=== PATIENT | female | born 2000 | race Caucasian/White ===

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

== ENCOUNTER 2022-11-14 08:23 | Emergency (ER) | payer OTHER ==
[2022-11-14 08:37] VITALS: BP 148/85; O2SAT 100
--- NOTE | 2022-11-14 08:40 | ED Physician Documentation ---
PD HPI HEADACHE - Stated complaint Stated Complaint: WOODS,DIZZINESS,NAUSEA - Chief complaint Chief Complaint: Neuro - History obtained from History obtained from: Patient - History of Present Illness Timing - onset: How many days ago (4) Timing - onset during: Light activity Timing - duration: Days (onset headache general 4 days ago with light activity. Improved with rest through the day. Was minimally present the past 2 days and then worsened again today.) Timing - details: Intermittant Pain level max: 10 Pain level now: 6 Location: Front, Global Quality: Throbbing, Aching Associated symptoms: Nausea. No: Fever, Stiff neck, Vomiting, Weakness, Numbness Improved by: Rest. No: Meds (tried ibuprofen) Worsened by: Noise Contributing factors: No: Hypertension, Recent illness, Trauma Similar symptoms before: Diagnosis (has history of intermittent headaches Dx as migraines for which she usually takes Ibuprfoen and rest in dark. The current headache was more abrupt than others and lasted longer. No focal weakness, vision loss, trouble speaking, trauma, fever.) Recently seen: Not recently seen Review of Systems Constitutional: denies: Fever, Chills Nose: denies: Rhinorrhea / runny nose, Congestion Throat: denies: Sore throat Respiratory: denies: Cough GI: reports: Nausea. denies: Vomiting, Diarrhea Skin: denies: Rash, Lesions Musculoskeletal: denies: Neck pain, Back pain Neurologic: denies: Focal weakness, Numbness, Difficulty speaking, Altered me ntal status PD PAST MEDICAL HISTORY - Past Medical History Cardiovascular: None Respiratory: None Neuro: Headaches Endocrine/Autoimmune: None - Past Surgical History Past Surgical History: No - Present Medications Home Medications: Ambulatory Orders Medication Instructions Recorded Confirmed HYDROcod/ACETAM 5/325 [Spurger 5/325] 1 ea PO Q6H PRN #10 tablet 11/14/22 Ondansetron Odt [Zofran] 4 mg TL Q6H PRN #10 tablet 11/14/22 dexAMETHasone [Decadron] 4 mg PO DAILY #5 tablet 11/14/22 - Allergies Allergies/Adverse Reactions: Allergies Allergy/AdvReac Type Severity Reaction Status Date / Time No Known Drug Allergies Allergy Verified 11/14/22 08:31 - Social History Does the pt smoke?: No Smoking Status: Never smoker Does the pt drink ETOH?: No Does the pt have substance abuse?: No - Immunizations Immunizations are current?: Yes - POLST Patient has POLST: No PD ED PE NORMAL - Vitals Vital signs reviewed: Yes - General General: Alert and oriented X 3, No acute distress, Well developed/nourished - HEENT HEENT: PERRL, EOMI, Ears normal, Pharynx benign - Neck Neck: Supple, no meningeal sign, No adenopathy - Cardiac Cardiac: RRR, No murmur - Respiratory Respiratory: Clear bilaterally - Derm Derm: Normal color, Warm and dry - Neuro Neuro: Alert and oriented X 3, No motor deficit, No sensory deficit, Normal speech Eye Opening: Spontaneous Motor: Obeys Commands Verbal: Oriented GCS Score: 15 Results - Vitals Vitals: Vital Signs - 24 hr 11/14/22 08:29 Temperature 36.8 C Heart Rate 98 Respiratory 20 Rate Blood Pressure 148/85 H O2 Saturation 100 Oxygen O2 Source Room air - Rads (name of study) head CT Relevant Findings:: Prelim report reviewed, EMP independent interpretation of test (no acute intracranial pathology.) PD Medical Decision Making - ED course Complexity details: reviewed results (CT scan is good. She had onset 4 days ago but then better and then worse again today. So I would work on assumtpion of within 6 hours of abrupt worse, that CT should be good for SAH and certainly would show other ICH, mass effect, edema, etc. ), considered differential (kconsider migraine with just more abrupt onset. Has some noise sensitive component. No red flags otherwise except for quicker onset. However she states is not like usual headache. Shared decision for CT scan and opted for scanning. ), d/w patient Reviewed Lab Results: with normal CT, presume atypical migraine for her. Discussed with her the consideration of LP but did not feel it needed as not c/w infectious and CT should be adequate for ICH. Departure - Departure Disposition: 01 Home, Self Care Clinical Impression: Headache Condition: Stable Record reviewed to determine appropriate education?: Yes Instructions: ED Cephalgia Unspecified Follow-Up: Ana Avelar ND [Primary Care Provider] - Prescriptions: dexAMETHasone [Decadron] 4 mg PO DAILY #5 tablet HYDROcod/ACETAM 5/325 [Spurger 5/325] 1 ea PO Q6H PRN #10 tablet PRN Reason: Pain Ondansetron Odt [Zofran] 4 mg TL Q6H PRN #10 tablet PRN Reason: Nausea / Vomiting Comments: Your headache could certainly be a persistent (status) migraine and these can last for several days to a week or more. Your CT scan is normal which does eliminate some potential conditions. You do not appear ill with regard to conditions like meningitis. At this point it is reasonable to see how you do with some anti-inflammatories., Medication for persistent migraine would be a steroid. I prescribed Decadron daily for 5 more days. 2 this had Tylenol every 4-6 hours if needed or ibuprofen if needed. Ondansetron/Zofran if needed for nausea. I prescribed a small amount of hydrocodone/acetaminophen if needed for worse headache at times for the current headache or future migraines. Recheck if not improved well over the next couple of days and return if worsening symptoms overall. I sent your prescriptions to your preferred pharmacy, [facility]. I am prescribing a short course of narcotic pain medication for you. These are potentially dangerous and addictive medications that should be used carefully. These medications may constipate you. Take an [id number] stool softener such as docusate twice daily with plenty of water while taking these medications. If you go 24 hours without a bowel movement, take [id number] MiraLAX, per package instructions. Do not drink or drive while taking these medications. If you received narcotic or sedating medications while in the emergency department do not drive for 24 hours. Store this medication in a safe, secure place and out of reach of children. It is a violation of federal law to give or sell this medication to another person or to use in a manner other than prescribed. The ED will not refill narcotic prescriptions, including prescriptions lost or stolen. You can dispose of unwanted medications at the [facility]'s office or at several pharmacies such as [facility]. Forms: PCP List, Activity restrictions Discharge Date/Time: 11/14/22 11:00
[2022-11-14] MEDS ORDERED: dexAMETHasone 4 MG TABLET PO STA (09:10)
[2022-11-14] MEDS ORDERED: NAPROXEN 250 MG TABLET PO STA (09:10)
[2022-11-14] MEDS ORDERED: ONDANSETRON ODT 4 MG TABLET TL STA (09:20)
--- NOTE | 2022-11-14 10:09 | CT Report ---
PROCEDURE: HEAD WO INDICATIONS: headache for 4 days TECHNIQUE: Noncontrast 4.5 mm thick angled axial sections acquired from the foramen magnum to the vertex. For r adiation dose reduction, the following was used: automated exposure control, adjustment of mA and/or kV according to patient size. COMPARISON: None. FINDINGS: Image quality: Excellent. CSF spaces: Basal cisterns are patent. No extra-axial fluid collections. Ventricles are normal in size and shape. Brain: No midline shift. No intracranial masses or hemorrhage. Nguyen-white matter interface is norm al. Skull and face: Calvarium and visualized facial bones are intact, without suspicious lesions. Sinuses: Visualized sinuses and mastoids are clear. IMPRESSION: No acute intracranial pathology Reviewed by: Dante Lezama MD on 11/14/2022 10:08 AM PDT Approved by: Dante Lezama MD on 11/14/2022 10:08 AM PDT Station ID: [id number]
== END 2022-11-14 11:00 | disposition home or self-care (01) ==
LOC: ED 08:23
DX: R51.9 Headache, unspecified (principal)
CPT/HCPCS: 70450; 99283; 99284; A9270; J8540; Q0162

== ENCOUNTER 2023-04-17 17:15 | Outpatient (CLI) | payer OTHER | END 2023-04-17 17:30 | disposition home or self-care (01) | LOC: LAB.N 17:15 | PROVIDERS: ATTEND Physician Assistant Medical | DX: N30.01 Acute cystitis with hematuria (principal) | CPT/HCPCS: 87086; 87181 ==

== ENCOUNTER 2023-11-02 10:17 | Outpatient (CLI) | payer OTHER ==
[~2023-11-02 10:17] MED LIST: GADOTERATE MEGLUMINE 10 MMOL/20 ML VIAL ONE
[2023-11-02] MEDS: GADOTERATE MEGLUMINE 10 MMOL/20 ML VIAL IVP ONE (11:42)
--- NOTE | 2023-11-04 13:24 | MRI Report ---
PROCEDURE: Pelvis W/WO INDICATIONS: ENDOMETROSIS CONTRAST: CLARISCAN 16.4 ML 16.4 mL TECHNIQUE: Coronal ultra fast SE, sagittal breath-hold T2 FSE; axial T1 FSE with and without fat saturation thro ugh the pelvis. Optional long- and short-axis uterine nonbreath-hold T2 FSE through the uterus. Sag ittal or axial dynamic ultra fast GE during administration of contrast. Post-contrast axial or coron al ultra fast GE / 2-D spoiled GE with fat saturation from the iliac crests to the symphysis. Option al diffusion weighted imaging and ADC may be performed. COMPARISON: Ultrasound 10/12/2023 FINDINGS: Image quality: Excellent. Uterus: Uterus is normal in size. Endometrium is normal in thickness. Junctional zone is normal in thickness at 12 mm or less. Nuvo ring present within the vagina. Adnexa: Both ovaries are normal in size, without suspicious cystic or solid lesions. Greater than 12 peripheral follicles in each ovary. No T1 bright foci within the deep pelvis or adnexa. Urinary system: Bladder wall is normal in thickness. Distal ureters are non distended. Urethra ce ears normal in morphology. Nodes and vessels: No pelvic or inguinal adenopathy by size criteria. Iliac vessels are normal in s ize. Bowel and peritoneum: No pathologic free pelvic fluid. Inferior colon and small bowel loops are nor mal in caliber. Soft tissues: No inguinal hernias. No findings of pelvic floor incompetence in the absence of provo cation. Bones: Marrow demonstrates normal overall signal. IMPRESSION: Greater than 12 follicles per ovary, which can be seen in the clinical setting of polycystic ovarian syndrome. No T1 bright signal within the deep pelvis to suggest endometriosis. Reviewed by: Stewart Barker MD on 11/04/2023 1:23 PM PDT Approved by: Stewart Barker MD on 11/04/2023 1:23 PM PDT Station ID: [id number]
== END 2023-11-02 10:18 | disposition home or self-care (01) ==
LOC: DI 10:17
PROVIDERS: ATTEND Nurse Practitioner
DX: N80.9 Endometriosis, unspecified (principal); R10.2 Pelvic and perineal pain; Z87.42 Personal history of other diseases of the female genital tract
CPT/HCPCS: 72197; A9575